=== PATIENT | female | born 1975 | race Caucasian/White ===

== ENCOUNTER 2018-09-06 09:33 | Day surgery (SDC) | payer OTHER ==
[~2018-09-06 09:33] MED LIST: DEXAMETHASONE SODIUM PHOSPHATE 10 MG/ML VIAL ONE; KETOROLAC TROMETHAMINE 30 MG/1ML VIAL ONE; LACTATED RINGERS 1,000 ML IV.SOLN IV ONE; LIDOCAINE HCL 2% PF 100MG/5ML VIAL IJ ONE; MIDAZOLAM HCL 2 MG/2 ML VIAL ONE; ONDANSETRON HCL/PF 4 MG/ 2ML VIAL ONE; PROPOFOL 200 MG/20 ML VIAL IV ONE; SEVOFLURANE 250 ML LIQUID IH ONE; fentaNYL CITRATE/PF 100 MCG/2 ML INJ. ONE
== END 2018-09-06 14:44 | disposition home or self-care (01) ==
LOC: OPSURG 09:33
PROVIDERS: ATTEND Specialist
DX: M99.05 Segmental and somatic dysfunction of pelvic region (principal); M70.62 Trochanteric bursitis, left hip; M99.06 Segmental and somatic dysfunction of lower extremity; M47.815 Spondylosis without myelopathy or radiculopathy, thoracolumbar region
CPT/HCPCS: 22505; 27198; 27275; J1885; J2001; J2250; J2405; J2704; J3010; J7120

== ENCOUNTER 2018-09-07 09:40 | Day surgery (SDC) | payer OTHER ==
[~2018-09-07 09:40] MED LIST changes: -DEXAMETHASONE SODIUM PHOSPHATE 10 MG/ML VIAL ONE; -MIDAZOLAM HCL 2 MG/2 ML VIAL ONE
== END 2018-09-07 14:00 | disposition home or self-care (01) ==
LOC: OPSURG 09:40
PROVIDERS: ATTEND Specialist
DX: M99.05 Segmental and somatic dysfunction of pelvic region (principal); M70.62 Trochanteric bursitis, left hip; M99.06 Segmental and somatic dysfunction of lower extremity; M47.816 Spondylosis without myelopathy or radiculopathy, lumbar region
CPT/HCPCS: 22505; 27198; 27275; J1885; J2001; J2405; J2704; J3010; J7120

== ENCOUNTER 2018-09-08 10:55 | Day surgery (SDC) | payer OTHER ==
[~2018-09-08 10:55] MED LIST changes: -ONDANSETRON HCL/PF 4 MG/ 2ML VIAL ONE
[2018-09-08] MEDS ORDERED: fentaNYL CITRATE/PF 100 MCG/2 ML INJ. ONE ×2 (12:28→12:55)
[2018-09-08] MEDS ORDERED: KETOROLAC TROMETHAMINE 30 MG/1ML VIAL ONE (12:28)
== END 2018-09-08 13:50 | disposition home or self-care (01) ==
LOC: OPSURG 10:55
PROVIDERS: ATTEND Specialist
DX: M99.05 Segmental and somatic dysfunction of pelvic region (principal); M70.62 Trochanteric bursitis, left hip; M99.06 Segmental and somatic dysfunction of lower extremity; M47.816 Spondylosis without myelopathy or radiculopathy, lumbar region
CPT/HCPCS: 22505; 27198; 27275; J1885; J2001; J2704; J3010; J7120